=== PATIENT | male | born 1980 | race Caucasian/White ===

== ENCOUNTER 2025-01-25 03:51 | Day surgery (SDC) | payer BC, SELFPAY ==
[2025-01-25] VITALS (18 sets, daily range): BP systolic 109–153; BP diastolic 75–106; PULSE 50–84; RESP 10–16; TEMP 36.3–36.8; O2SAT 93–98; BMI 29.0
--- NOTE | 2025-01-25 04:11 | ED.ABDPAIN ---
HPI - Abdominal Pain General Date Seen: 01/25/25 Chief Complaint: Abdominal Pain Stated Complaint: Right side abdominal pain Time Seen by Provider: 01/25/25 04:03 Source: patient and RN notes reviewed Mode of arrival: ambulatory Limitations: no limitations History of Present Illness HPI narrative: Patient is a 44-year-old gentleman who presents here with right upper quadrant pain for the last 6 hours, he describes as crampy intermittent/colicky in nature no radiation to his back or anywhere else. Some nausea but has not vomited. Patient notes that he has had this before approximately at 6 months ago and also 2 years ago. Two years ago he was seen in the [place] ER, but had no definite diagnosis. Does not recall if any imaging was done. No previous history of any abdominal surgeries has had previous knee surgery, along with dental surgery. Did not take anything for the pain tonight, lives in [place] but works at [employer] here in town. Does use occasional alcohol, his 6-8 oz per week basis. , lifetime smoker, 1 pack per day. No use of drugs Pertinent past history: none Onset (ago): hour(s) (6) Pain Consistency: colicky Location: RUQ Severity: moderate Quality: cramping and stabbing Radiation: none Migration to: no migration Exacerbating factors: nothing Relieving factors: nothing Context: history of similar episodes Associated symptoms: nausea Related Data Home Medications ?Medication ?Instructions ?Recorded ?Confirmed No Known Home Medications 01/25/25 01/25/25 Allergies Allergy/AdvReac Type Severity Reaction Status Date / Time erythromycin base Allergy Severe Anaphylaxis Verified 01/25/25 03:58 Review of Systems Status of ROS Reports: 10 or more systems reviewed and unremarkable except as noted in History and below [facility] Surgical History History of wisdom tooth extraction ?K08.409 - Partial loss of teeth, unspecified cause, unspecified class (ICD-10) History of tonsillectomy ?Z90.89 - Acquired absence of other organs (ICD-10) Social History Smoking Status: Current every day smoker Second hand tobacco smoke exposure: Yes How often do you have a drink containing alcohol: never AUDIT-C Alcohol total score: 0 Non-prescribed substance use: denies use Exam Narrative: Exam Narrative: On examination I find him in room 5, he is in some distress, I would describe as moderate pupils are equal round reactive to light there is no scleral icterus redness TMs are normal oropharynx normal there is no adenopathy anterior posterior chains, chest is good air entry bilaterally no wheezing crackles noted heart sounds no clicks murmurs or gallops his abdomen shows tenderness in the right upper quadrant, with a positive Wagner sign. Bowel sounds are quiet, but occasional. No organomegaly, no CVA tenderness, skin reveals no petechiae rashes, no scleral icterus. Moves all extremities independently well, neurologically intact. No rashes Const: Vital Signs, click to edit/add: Vital Signs - 24 hr 01/25/25 03:56 01/25/25 04:23 01/25/25 05:15 Temperature 98.2 F 98.2 F Pulse Rate Pulse Rate [Pulse Oximeter] 84 Respiratory Rate 16 Blood Pressure [Ri ght Upper Arm] 144/103 H Pulse Oximetry 98 98 Oxygen Delivery Me thod Room Air 01/25/25 05:24 01/25/25 06:07 01/25/25 08:00 Temperature 98.2 F 98.2 F Pulse Rate 70 Pulse Rate [Pulse Oximeter] 65 Respiratory Rate 16 Blood Pressure [Ri ght Upper Arm] 117/75 Pulse Oximetry 98 93 Oxygen Delivery Me thod Room Air Documenting provider has reviewed patient's vital signs: yes Course Course ED Course: I did a point of care ultrasound of his right upper quadrant, I do see evidence of some shadowing, likely stones, some sludge also, 1 of the stones appears to be in the neck, no wall thickening, no pericholecystic fluid, and a mildly positive Wagner sign. We will proceed with the CT scan Reevaluation(s) Time of Reevaluation #1: 08:04 Reevaluation #1: Discussed with Dr. Ceballos from General surgery she recommends a lap choly today, given the history, and findings on ultrasound, I spoke to the patient he is agreeable. She will come by and see the patient we will keep him NPO. Vital Signs Vital signs: Initial Vital Signs Temperature 98.2 F 01/25/25 03:56 Temperature Source Temporal Artery Scan 01/25/25 03:56 Pulse Rate 84 02/25/25 03:56 Respiratory Rate 16 01/25/25 03:56 Blood Pressure 144/103 H 01/25/25 03:56 Blood Pressure Mean 116 H 01/25/25 03:56 Blood Pressure Position Sitting 01/25/25 03:56 Pulse Oximetry 98 01/25/25 03:56 Oxygen Delivery Method Room Air 01/25/25 03:56 Vital Signs Temperature 98.2 F 01/25/25 03:56 Pulse Rate 84 01/25/25 03:56 Respiratory Rate 16 01/25/25 03:56 Blood Pressure 144/103 H 01/25/25 03:56 Pulse Oximetry 98 01/25/25 03:56 Oxygen Delivery Method Room Air 01/25/25 03:56 Temperature 98.2 F 01/25/25 06:07 Pulse Rate 70 01/25/25 08:00 Respiratory Rate 16 01/25/25 06:07 Blood Pressure 117/75 01/25/25 06:07 Pulse Oximetry 93 01/25/25 08:00 Oxygen Delivery Method Room Air 01/25/25 06:07 Medications Administered Medications: Discontinued Medications Generic Name Dose Route Start Last Admin Trade Name Freq PRN Reason Stop Dose Admin Sodium Chloride 1,000 mls @ 1,000 mls/hr 01/25/25 04:15 01/25/25 05:32 0.9 % Sodium Chloride 1000 Ml IV 01/25/25 05:14 Infused .Q1H CADEN Infusion Ketorolac Tromethamine 30 mg 01/25/25 04:15 01/25/25 04:23 Ketorolac 30 Mg/Ml Inj IVP 01/25/25 04:16 30 mg ONCE ONE Administration Ondansetron HCl 4 mg 01/25/25 04:15 01/25/25 04:23 Ondansetron 2 Mg/Ml Inj IVP 01/25/25 04:16 4 mg ONCE ONE Administration MDM - Abdominal Pain MDM Narrative Medical decision making narrative: During this evaluation of this patient I considered multiple differential diagnosis is which included the life-threatening such as appendicitis, aortic aneurysm, mesenteric ischemia, bowel perforation, volvulus, and bowel obstruction. Other differential diagnosis is include but are not limited to cholecystitis, pancreatitis, hepatitis, gastritis, GERD, diverticulitis, peptic ulcer disease, pyelonephritis/UTI, renal colic/stone, testicular torsion as well as other acute scrotal processes, inflammatory bowel disease, as well as other etiologies Medical Records Attestation: I reviewed the patient's medical records. Lab Data Attestation: I reviewed the patient's lab results. Labs: Lab Results 01/25/25 01/25/25 01/25/25 Range/Units 04:04 04:10 04:57 WBC 14.58 H (4.50-11.00) K/uL RBC 5.36 (4.30-5.90) m/uL Hgb 15.7 (13.5-17.5) gm/dL Hct 47.0 (37.0-53.0) % MCV 88 (80-100) fL MCH 29 (26-34) pg MCHC 33 (32-36) gm/dL RDW Coeff of Osmin 13.6 (11.5-15.5) % Plt Count 242 (140-440) K/uL Neut % (Auto) 60.7 (42.0-72.0) % Lymph % (Auto) 28.1 (20-44) % [place] % (Auto) 7.1 (0.0-11.0) % Eos % (Auto) 3.3 (0.0-7.0) % Baso % (Auto) 0.5 (0.0-3.0) % Neut # (Auto) 8.90 H (1.7-7.0) K/uL Lymph # (Auto) 4.10 H (0.90-2.90) K/uL [place] # (Auto) 1.00 H (0.00-0.90) K/UL Eos # (Auto) 0.50 (0.00-0.50) K/uL Baso # (Auto) 0.10 (0.00-0.30) K/uL Abs Immat Gran (auto) 0.00 (0.00-0.30) K/uL Imm/Tot Granulo (auto) 0.3 % Sodium 138 (135-149) mmol/L Potassium 3.7 (3.6-5.1) mmol/L Chloride 107 (96-114) mmol/L Carbon Dioxide 21 (20-32) mmol/L Anion Gap 10 (7-15) mEq/L BUN 17 (5-24) mg/dL Creatinine 1.0 (0.5-1.5) mg/dL Estimated Creat Clear 88.13 Estimated GFR 95 ml/min Glucose 126 H (60-115) mg/dL Calcium 9.2 (8.4-10.6) mg/dL Troponin I < 0.01 L (0.01-0.04) ng/mL C-Reactive Protein < 0.5 L (0.5-1.0) mg/dL Amylase 52 (18-89) U/L Lipase 86 (23-300) U/L Procalcitonin 0.04 (<0.50) ng/mL Urine Color Yellow (Yellow) Urine Appearance Clear (Clear) Urine pH 6.0 (5.0-8.5) Ur Specific Conrad 1.025 (1.000-1.030) Urine Protein Negative (Negative) Urine Glucose (UA) Negative (Negative) Urine Ketones Negative (Negative) Urine Blood Negative (Negative) Urine Nitrite Negative (Negative) Urine Bilirubin Negative (Negative) Urine Urobilinogen 0.2 (0.2-1.0) Ur Leukocyte Esterase Negative (Negative) Urine RBC 0-2 (0-2) Urine WBC 0-2 (0-5) Ur Squamous Epith Cells Few (None-Few) Urine Bacteria None (None) Ethyl Alcohol < 0.01 L (0.01-0.03) % Lab Acknowledgement Test Added Imaging Data CT scan - abdomen: Attestation: I have reviewed the pertinent imaging results. My impression: Cholelithiasis without cholecystitis Radiologist's impression: Patient: Everton Fuentes MR#: [id number] : 1980 Acct:[id number] Loc: ED Service Date: 01/25/[address]: Ordering Physician: Yung Hickman M.D. Date of Service: 01/25/25 Procedure(s): CT abdomen pelvis w con Accession Number(s): [id number] cc: Provider,Not a Local; Yung Hickman M.D.~ For Patients: As a result of the Century Cures Act, medical imaging exams and procedure reports are released immediately into your electronic medical record. You may view this report before your referring provider. If you have questions, please contact your health care provider. INDICATION: Right upper quadrant pain, intermittent. COMPARISON: None TECHNIQUE: CT examination of the abdomen and pelvis was performed following the uneventful intravenous administration of 91 cc of Isovue 370. Thin section axial images were obtained from the lung bases through the pubic symphysis. Oral contrast was not administered. Please note that all CT scans at this facility use dose modulation, iterative reconstruction, and/or weight-based dosing when appropriate to reduce radiation dose to as low as reasonably achievable. FINDINGS: LUNG BASES: The heart size is normal at the lung bases.There is a 7 millimeter nodule at the left lung base best seen on axial image 13. Recommend a full formal noncontrast chest CT in the nonacute setting as multiplicity of findings may be helpful in determining the etiology and developing management recommendations. LIVER/BILIARY SYSTEM:The liver is normal in size and configuration. There is no focal mass and there is no intra- or extra hepatic biliary ductal dilatation.Hepatic steatosis. The gallbladder is distended. There are gallstones near the gallbladder neck but not identified within the duct. No clearly visible wall thickening or pericholecystic fluid. Consider sonography for further evaluation ADRENALS: Normal KIDNEYS, URETERS and BLADDER:The kidneys appear normal. No visible mass, calculus or hydronephrosis. The ureters and bladder as visualized appear normal. SPLEEN:Normal appearance. PANCREAS: Appears normal. RETROPERITONEUM and MESENTERY: There is no mass, adenopathy or aortic aneurysm. GASTROINTESTINAL SYSTEM: There is no evidence of diverticulitis, colitis, mechanical obstruction, or appendicitis. The small bowel as visualized appears normal.Mild fecal retention PELVIS: No mass, adenopathy or free fluid. OSSEOUS STRUCTURES and ABDOMINAL WALL: There is an age-appropriate appearance of the osseous structures.No significant abdominal wall defect. OTHER: No free fluid or free air. IMPRESSION: 1. Distended gallbladder. Cholelithiasis with stones identified near the gallbladder neck. No definite wall thickening, pericholecystic fluid or biliary ductal dilation. Consider sonography for more definitive evaluation. 2. There is a left lower lobe nodule. Additional follow-up is recommended as outlined in the body of the report. 3. Other incidental nonacute appearing findings as above Please note that all CT scans at this facility use dose modulation, iterative reconstruction, and/or weight-based dosing when appropriate to reduce radiation dose to as low as reasonably achievable. Dictated by Zelalem Choudhury MD @ 01/25/2025 5:51:29 AM ([place] [id number] Diagnostic Imaging Report Patient: Everton Fuentes MR#: [id number] : 1980 Acct:[id number] Loc: ED Service Date: 01/25/[address]: Ordering Physician: Yung Hickman M.D. Date of Service: 01/25/25 Procedure(s): US gallbladder Accession Number(s): [id number] cc: Provider,Not a Local; Yung Hickman M.D.~ For Patients: As a result of the Cures Act, medical imaging exams and procedure reports are released immediately into your electronic medical record. You may view this report before your referring provider. If you have questions, please contact your health care provider. Indication: Right upper quadrant pain. Abnormal CT Technique: Sonography of the abdomen was performed limited to the structures discussed below Comparison: The CT of earlier the same day. Findings: As described below Impression: 1. Gallbladder wall is mildly thickened at 4 millimeters. Stones are identified in the gallbladder neck. There also probable small polyps and there is gallbladder sludge. 2. No pericholecystic fluid collection. 3. Reported sonographic Wagner`s sign. 4. Normal caliber common bile duct. 5. Nonspecific findings but could indicate very early/developing acute cholecystitis in the appropriate clinical setting. Appropriate consultation is advised Dictated by Zelalem Choudhury MD @ 01/25/2025 7:19:37 AM (Electronically Signed) Discharge Plan Discharge Clinical Impression: Abdominal pain, Cholelithiasis, Incidental pulmonary nodule, > 3mm and < 8mm Patient Disposition: XFER to OR Condition: Improved Follow Up/Referrals: Provider,Not a Local [Primary Care Provider] -
[2025-01-25] MEDS: 0.9 % SODIUM CHLORIDE 1000 ml 1,000 ML IV (04:12)
[2025-01-25] MEDS: ONDANSETRON 2 MG/ML inj 4 MG IVP (04:23)
[2025-01-25] MEDS: KETOROLAC 30 MG/ML inj IVP (04:23)
[2025-01-25 04:25] LABS: Basophils Percent Auto 0.5 % (0.0-3.0); Eosinophils Percent Auto 3.3 % (0.0-7.0); Hemoglobin* 15.7 gm/dL (13.5-17.5); Immature Granulocytes Pct Auto 0.3 %; Lymphocytes Percent Auto 28.1 % (20-44); Mean Corpuscular HGB Conc 33 gm/dL (32-36); Mean Corpuscular Hemoglobin 29 pg (26-34); Mean Corpuscular Volume 88 fL (80-100); Monocytes Percent Auto 7.1 % (0.0-11.0); Neutrophils Percent Auto 60.7 % (42.0-72.0); Platelet Count* 242 K/uL (140-440); RDW Coefficient of Variation % 13.6 % (11.5-15.5); Red Blood Count 5.36 m/uL (4.30-5.90); White Blood Count* 14.58 K/uL (4.50-11.00)
[2025-01-25 04:26] LABS: Appearance Urine Clear (Clear); Bilirubin Urine Negative (Negative); Blood Urine Negative (Negative); Color Urine Yellow (Yellow); Glucose Urine Negative (Negative); Ketones Urine Negative (Negative); Leukocyte Esterase Urine Negative (Negative); Nitrite Urine Negative (Negative); Protein Urine Negative (Negative); Specific Gravity Urine 1.025 (1.000-1.030); Urobilinogen Urine 0.2 (0.2-1.0)
[2025-01-25 04:28] LABS: Slide Review Reflex No
--- OUTSIDE RECORDS SUMMARY | 2025-01-25 04:32 | XMS_ITS | Encounter Summary ---
Author Organization [facility] Address [address] [place] [address] Care Team Providers Care Peer Counselor Name Role Phone Elsewhere, Pcp Primary Care Provider Unavailabl e Encounter Details Date Type Department Care Team (Late st Contact Info) Description 12/20/2024 4:40 PM [employer] Telemedicine [facility] in [place], [place] [address] [facility] [id number] Cortez, Sommer Mas APRN, C.N.P., F.N.P. [address] [place] [id number] Sinusitis Acute (Primary Dx) Social History Tobacco Use Types Packs/Day Years Used Date Smoking Tobacco: Every Day Cigarettes 1 26.5 Started: 05/01/1996; Last attempted to quit: 11/08/2022 Passive Smoke Exposure: Past Smokeless Tobacco: Never Comments:Tobacco cessation i nformation offered - patient declines stating has info at home. Stop smoking cigarette however does vaping Alcohol Use Standard Drinks/Week Comments Yes 4 (1 standard drink = 0.6 oz pur e alcohol) weekly [facility] Utilities Answer Date Recorded In the past 12 months has th e electric, gas, oil, or water company threatened to shut off services in your home? No 12/19/2024 Humiliation, Afraid, Rape, and Kick questionnair e Answer Date Recorded Within the last year, have y ou been afraid of your partner or ex-partner? No 07/07/2023 Within the last year, have y ou been humiliated or emotionally abused in other ways by your partner or ex-partner? No Within the last year, have y ou been kicked, hit, slapped, or otherwise physically hurt by your partner or ex-partner? No 07/07/2023 Within the last year, have y ou been raped or forced to have any kind of sexual activity by your partner or ex-partner? No 07/07/2023 Social Connection and Isolation Panel [NHANES] A nswer Date Recorded In a typical week, how many times do you talk on the phone with family, friends, or neighbors? Patient declined 04/18/2022 How often do you get togethe r with friends or relatives? Patient declined 04/18/2022 How often do you attend voodoo or denominational serv ices? Patient declined 04/18/2022 Do you belong to any clubs o r organizations such as voodoo groups, unions, fraternal or athletic groups, or school groups? Patient declined 04/18/2022 How often do you attend meet ings of the clubs or organizations you belong to? Patient declined 04/18/2022 Are you , , di vorced, , never , or living with a partner? 04/18/2022 AUDIT-C Answer Date Recorded Q1: How often do you have a drink containing alc ohol? Patient declined 04/18/2022 Average Number of Drinks Not on file 022 Frequency of Binge Drinking Not on file 03/31 Overall Financial Resource Strain (CARDIA) Answe r Date Recorded How hard is it for you to pa y for the very basics like food, housing, medical care, and heating? Not hard at all 07/07/2023 PHQ-2 Answer Date Recorded PHQ-2 Score 0 04/29/2024 [facility] Occupat ional Health - Occupational Stress Questionnaire Answer Date Recorded Do you feel stress - tense, restless, nervous, or anxious, or unable to sleep at night because your mind is troubled all the time - these days? Only a little 04/18/2022 Exercise Vital Sign Answer Date Recorde d On average, how many days pe r week do you engage in moderate to strenuous exercise (like a brisk walk)? 7 days 12/19/2024 On average, how many minutes do you engage in exercise at this level? 150+ min 12/19/2024 Hunger Vital Sign Answer Date Recorded Within the past 12 months, y ou worried that your food would run out before you got the money to buy more. Never true 12/19/19 25 Within the past 12 months, t he food you bought just didn't last and you didn't have money to get more. Never true 12/19/2024 PRAPARE - Transportation Answer Date Re corded In the past 12 months, has l ack of transportation kept you from medical appointments or from getting medications? No 12/01 In the past 12 months, has l ack of transportation kept you from meetings, work, or from getting things needed for daily living? No 12/19/2024 Nutrition Answer Date Recorded On average, how many serving s of fruits and vegetables do you eat per day (serving size is equal to 1 cup or approximately the size of a tennis ball)? 0-2 12/19/2024 Dental Answer Date Recorded Dental: Regular Dentist Yes 12/19/19 Employment Answer Date Recorded Employment status Employed and actively working without restrictions 12/19/2024 Housing Stability Answer Date Recorded What is your living situation today? I have a [facility] place to live 12/19/2024 Sex and Gender Information Value Date Recorded Sex Assigned at Male 08/21/2021 6:10 PM CDT Legal Sex Male 9:28 PM [employer] Gender Identity Male 03/07/2021 7:13 PM CDT Sexual Orientation Straight 03/07/2021 7: 13 PM CDT documented as of this encounter Progress Notes * Cortez, Sommer Mas, DENIS, C.N.P., F.N.P. - 12/20/2024 4:40 PM CST SUBJECTIVE CHIEF COMPLAINT / REASON FOR VISIT Sommer MARTINEZC and Everton conducted via real-time audio/video technology from [facility] their home. Everton is a 44 y.o. male who presents for evaluation of No chief complaint on file.. HISTORY OF PRESENT ILLNESS Video visit with a 44-year-old male who is having sinus pain and pressure. Original URI symptoms began 2 weeks ago. Said he has had a cough and congestion but that has improved, now it is just aroundhis sinuses. Said the drainage is yellow and cloudy. Has been trying DayQuil and NyQuil, Mucinex, Vicks in the shower. HISTORY The patients allergies, current medications, problem list, and social history were reviewed . REVIEW OF SYSTEMS Constitutional: - Negative for fever. ENT: Positive for sinus congestion. Respiratory: Positive for dry cough. - Negative for shortness of breath. Cardiovascular: - Negative for chest pain, pressure or tightness. OBJECTIVE There were no vitals taken for this visit. PHYSICAL EXAM Constitutional General: He is not in acute distress. Appearance: Normal appearance. He is not ill-appearing. Comments: Patient appears well, speaks in full sentences. No respiratory distress. Points to his maxillary sinuses that are tender. Neurological Mental Status: He is alert. No results found for this or any previous visit (from the past 24 hours). ASSESSMENT / PLAN PLAN: Will treat with Augmentin. Any prescription orders needed have been placed. Pertinent [id number] modalities have been discussed. Length/course of illness expectations has been given. Instructions on follow-up have been reviewed. Change in symptoms or signs that would indicate need for re-evaluation have been discussed also. #1 Sinusitis Acute - amoxicillin-pot clavulanate (Augmentin) 875-125 mg per tablet; Take 1 tablet by mouth 2 (two) times a day for 5 days., Starting 12/20/2024, Until 12/25/2024, Normal ER [employer]ER documented in this encounter Plan of Treatment Not on file documented as of this encounter Visit Diagnoses Diagnosis Sinusitis Acute- Primary documented in this encounter Care Teams Peer Counselor Relationship Specialty Start Date End Date Elsewhere, Pcp PCP - General Family Medicine 12/09/17 documented as of this encounter
--- OUTSIDE RECORDS SUMMARY | 2025-01-25 04:32 | XMS_ITS | Clinical Summary ---
Author Organization [facility] Address [address] [place] [address] Care Team Providers Care Home Assessment Nurse Name Role Phone Elsewhere, Pcp Primary Care Provider Unavailabl e Source Comments Patient records contain information from all sites at [facility]. For routine questions regarding patient records, call [phone] during business hours, M-F 8:00 AM - 5:00 PM Central Time. Record requests for emergency care only can be directed to [phone] at any time.[facility] Allergies Active Allergy Reactions Criticality Noted Date Comments Erythromycin Anaphylaxis High 08/14/2011 Medications * This document contains information received from the source organization and may not represent a complete record from that organization. loratadine (CLARITIN) 10 mg tablet Take 10 mg by mouth daily as needed for allergies. Active ibuprofen (ADVIL,MOTRIN) 200 mg tablet Take 400 mg by mouth every 6 (six) hours as needed for pain. Active terbinafine (LamISIL) 250 mg tablet Take 1 tablet (250 mg total) by mouth daily. 84 tablet 04/30/2024 Active Active Problems Problem Noted Date Diagnosed Date Body Mass Index 30.0 To 30.9 Adult 07/15/2023 Nicotine Dependence Cigarettes 06/16/2019 Resolved Problems Problem Noted Date Diagnosed Date Resolved Date History Of Falling 01/01/2021 No Current Problems or Disability 10/20/2014 06/16/2019 Encounters Date Type Department Care Team Description 12/20/2024 4:40 PM ULTRASOUND COORDINATOR Telemedicine [facility] in [place] [address] [place] [address] Coral, Sommer Mas APRN, C.N.P., F.N.P. Sinusitis Acute (Primary Dx) from Last 3 Months Immunizations Immunization Administration Dates Next Due Influenza, Unspecified 10/02/2010 Tdap 12/30/2013 Family History Medical History Relation Name Comments Breast cancer Mother yaw gomez Migraines Mother yaw gomez Leukemia Sister jyoti cole Relation Name Status Comments Mother yaw gomez Sister jyoti cole Social History Tobacco Use Types Packs/Day Years Used Date Smoking Tobacco: Every Day Cigarettes 1 26.5 Started: 05/01/1996; Last attempted to quit: 11/08/2022 Passive Smoke Exposure: Past Smokeless Tobacco: Never Tobacco Cessation:Ready to Q uit: Not Asked; Counseling Given: Not Answered Comments:Tobacco cessation information offered - patient declines stating has info at home. Stop smoking cigarette however does vaping Alcohol Use Standard Drinks/Week Comments Yes 4 (1 standard drink = 0.6 oz pur e alcohol) weekly [employer] Utilities Answer Date Recorded In the past 12 months has [employer] gas, oil, or water [employer] threatened to shut off services in your [...] declined 04/18/2022 How often do you attend yazdanism or congregation serv ices? Patient declined 04/18/2022 Do you belong to any clubs o r organizations such as yazdanism groups, unions, fraternal or athletic groups, or [...] Answer Date Recorded PHQ-2 Score 0 04/29/2024 [facility] - Occupational Stress [...] your living situation today? I have a [facility] place to live 12/19/2024 Sex and Gender Information Value Date Recorded Sex Assigned at Male 08/21/2021 6:10 PM CDT Legal Sex Male 9:28 PM ULTRASOUND COORDINATOR Gender Identity Male 03/07/2021 7:13 PM CDT Sexual Orientation Straight 03/07/2021 7: 13 PM CDT Last Filed Vital Signs Vital Sign Reading Time Taken Comments Blood Pressure 121/81 04/30/2024 3:03 PM CDT Pulse 73 04/30/2024 3:03 PM CDT Temperature 36.3 C (97.4 F) 07/14/2023 1:45 PM CDT Respiratory Rate 16 04/30/2024 3:03 PM CDT Oxygen Saturation 97% 05/15/2022 3:45 PM CDT room air Inhaled Oxygen Concentration - - Weight 81.2 kg (179 lb 0.2 oz) 04/30/2024 3:03 P M CDT Height 166.7 cm (5' 5.63) 07/14/2023 1:45 PM CD T Body Mass Index 29.22 07/14/2023 1:45 PM CDT Plan of Treatment Health Maintenance Due Date Last Done Comments Hepatitis B Screening 1980 Hepatitis C Screening 1980 Lipid (Cholesterol) Screening 1980 Hepatitis B Vaccines (1 of 3 - 19+ 3-dose series) 1999 Pneumococcal vaccine (0-49 years) (1 of 2 - PCV) 1999 DTaP,Tdap,and Td Vaccines (2 - Td or Tdap) 12/30/2023 12/30/2013 COVID-19 Vaccine (3 - 2023-2 5 season) 2024 04/18/2021, 03/28/2021 Influenza Vaccine (#1) 2024 10/02/2010 Depression Screening (Annual PHQ-2) 12/01/2024 Tobacco Cessation counseling 04/30/2025, 07/14/2023 HPV Vaccines Aged Out No longer eligi ble based on patient's age to complete this topic IPV Vaccines Aged Out No longer eligi ble based on patient's age to complete this topic Insurance [facility] Care Teams Home Assessment Nurse Relationship Specialty Start Date End Date Elsewhere, Pcp PCP - General Family Medicine 12/09/17
--- OUTSIDE RECORDS SUMMARY | 2025-01-25 04:32 | XMS_ITS | Clinical Summary ---
Author Organization [facility] Address [address] [place] [id number] Care Team Providers Care Wwe Wrestler Name Role Phone Pcp, No Primary Care Provider Unavailabl e Allergies Active Allergy Reactions Criticality Noted Date Comments Erythromycin Anaphylaxis High 08/14/2011 Medications traMADoL (Ultram) 50 mg tabletIndication s:Ganglion cyst Take 1 Tablet (50 mg) by mouth every 6 hours if needed for Pain. 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 Gender Identity Not on file Sexual Orientation Not on file Obstetrics History Last Filed Vital Signs Vital Sign Reading Time Taken Comments Blood Pressure 111/76 07/17/2023 12:25 PM CDT Pulse 48 07/17/2023 12:25 PM CDT Temperature 36.3 C (97.3 F) 07/17/2023 11:52 AM CDT Respiratory Rate 16 07/17/2023 12:25 PM CDT Oxygen Saturation 97% 07/17/2023 12:25 PM CDT Inhaled Oxygen Concentration - - Weight 83.1 kg (183 lb 4.8 oz) 07/17/2023 9:06 A M CDT Height 170.5 cm (5' 7.13) 07/11/2023 8:06 AM CD T Body Mass Index 28.6 07/11/2023 8:06 AM CDT Plan of Treatment Health Maintenance Due Date Last Done Comments Tdap 1991 Depression screening for age 12+ 1992 HIV for age 15-65 1995 BMI (ht and wt on same day) for age 18+ 1998 Hepatitis C screening for age 18-79 1998 Pneumococcal series for age 6-49 (1 of 2 - PCV) 1999 Tetanus booster 2000 Lipids for age 35-44 2015 COVID-19 vaccine series ( season) 2024 04/18/2021, 03/28/2021 Influenza for age 9-49 08/01/2024 Insurance [facility] BLUE CROSS OF NON-[place] Advance Directives * Full Code (Latest Code Status on File) Date Activated Date Inactivated Comments 07/17/2023 7:30 AM 07/17/2023 2:56 PM Question Answer Comments Code Status Discussion: Reviewed Preferences * Full Code Date Activated Date Inactivated Comments 05/30/2022 5:55 AM 05/30/2022 9:20 AM Question Answer Comments Code Status Discussion: Reviewed Preferences Care Teams Wwe Wrestler Relationship Specialty Start Date End Date Pcp, No . PCP - General 08/03/19
[2025-01-25 04:38] LABS: RBC Urine 0-2 (0-2); Squamous Epithelial Cell Urine Few (None-Few); WBC Urine 0-2 (0-5)
[2025-01-25 04:39] LABS: Chloride* 107 mmol/L (96-114); Sodium* 138 mmol/L (135-149)
[2025-01-25 04:40] LABS: Potassium* 3.7 mmol/L (3.6-5.1)
[2025-01-25 04:42] LABS: Amylase* 52 U/L (18-89); Blood Urea Nitrogen* 17 mg/dL (5-24); Est. Creatinine Clearance* 88.13; Estimated Glomerular Filt Rate 95 ml/min
[2025-01-25 04:43] LABS: Anion Gap 10 mEq/L (7-15); Calcium* 9.2 mg/dL (8.4-10.6); Carbon Dioxide* 21 mmol/L (20-32); Glucose* 126 mg/dL (60-115); Lipase* 86 U/L (23-300)
[2025-01-25 04:49] LABS: C Reactive Protein* < 0.5 mg/dL (0.5-1.0); Ethanol* < 0.01 % (0.01-0.03)
[2025-01-25 05:00] LABS: Procalcitonin* 0.04 ng/mL (<0.50)
--- NOTE | 2025-01-25 05:09 | CRLHL7_ITS ---
For Patients: As a result of the 21st Century Cures Act, medical imaging exams and procedure reports are released immediately into your electronic medical record. You may view this report before your referring provider. If you have questions, please contact your health care provider. INDICATION: Right upper quadrant pain, intermittent. COMPARISON: None TECHNIQUE: CT examination of the abdomen and pelvis was performed following the uneventful intravenous administration of 91 cc of Isovue 370. Thin section axial images were obtained from the lung bases through the pubic symphysis. Oral contrast was not administered. Please note that all CT scans at this facility use dose modulation, iterative reconstruction, and/or weight-based dosing when appropriate to reduce radiation dose to as low as reasonably achievable. FINDINGS: LUNG BASES: The heart size is normal at the lung bases.There is a 7 millimeter nodule at the left lung base best seen on axial image 13. Recommend a full formal noncontrast chest CT in the nonacute setting as multiplicity of findings may be helpful in determining the etiology and developing management recommendations. LIVER/BILIARY SYSTEM:The liver is normal in size and configuration. There is no focal mass and there is no intra- or extra hepatic biliary ductal dilatation.Hepatic steatosis. The gallbladder is distended. There are gallstones near the gallbladder neck but not identified within the duct. No clearly visible wall thickening or pericholecystic fluid. Consider sonography for further evaluation ADRENALS: Normal KIDNEYS, URETERS and BLADDER:The kidneys appear normal. No visible mass, calculus or hydronephrosis. The ureters and bladder as visualized appear normal. SPLEEN:Normal appearance. PANCREAS: Appears normal. RETROPERITONEUM and MESENTERY: There is no mass, adenopathy or aortic aneurysm. GASTROINTESTINAL SYSTEM: There is no evidence of diverticulitis, colitis, mechanical obstruction, or appendicitis. The small bowel as visualized appears normal.Mild fecal retention PELVIS: No mass, adenopathy or free fluid. OSSEOUS STRUCTURES and ABDOMINAL WALL: There is an age-appropriate appearance of the osseous structures.No significant abdominal wall defect. OTHER: No free fluid or free air. IMPRESSION: 1. Distended gallbladder. Cholelithiasis with stones identified near the gallbladder neck. No definite wall thickening, pericholecystic fluid or biliary ductal dilation. Consider sonography for more definitive evaluation. 2. There is a left lower lobe nodule. Additional follow-up is recommended as outlined in the body of the report. 3. Other incidental nonacute appearing findings as above Please note that all CT scans at this facility use dose modulation, iterative reconstruction, and/or weight-based dosing when appropriate to reduce radiation dose to as low as reasonably achievable. Dictated by Zelalem Choudhury MD @ 01/25/2025 5:51:29 AM (Electronically Signed)
[2025-01-25 05:57] LABS: Troponin I* < 0.01 ng/mL (0.01-0.04)
[2025-01-25] MEDS: 0.9 % SODIUM CHLORIDE 1000 ml 1,000 ML 150 ML IV ×2 (08:13→13:48)
--- NOTE | 2025-01-25 09:23 | PM.GSCN ---
History of Present Illness Consult details Date Seen: 01/25/25 Consult date: 01/25/25 Narrative: 44-year-old male presented to emergency room with epigastric and right upper quadrant pain that started last night. Patient described the pain as sharp and started after dinner. He ate spaghetti for dinner. Patient had similar episodes of pain in the past and was seen at the outside hospital in the emergency room at least 2 times. No definitive cause of his pain was found. Patient denies any nausea or vomiting. His bowel movements are usually daily. Patient does take ibuprofen on average every 3 days. He is a smoker. He denies acid reflux symptoms. He does drink alcohol anywhere from 1 drink a day to up to 4-5 on Tuesdays. I personally reviewed his workup in the emergency room. Patient was found to have elevated WBC of 14. His lipase was normal. His liver function tests were normal. A gallbladder ultrasound was obtained that showed distended gallbladder with cholelithiasis, the gallbladder wall was 4 mm thick with no pericholecystic fluid. Common bile duct was measured at [address] was also obtained that showed distended gallbladder with no significant pericholecystic fluid. There was no dilated small or large intestine. There is a small lung nodule noted and further follow-up with primary care doctor was recommended. Review of Systems Narrative: General: no fevers HENT: no problems swallowing CV: no shortness of breath Resp: no cough GI: No nausea, vomiting, abdominal pain : no dysuria, no increased urinary frequency, no hematuria Skin: no new rashes Musculoskeletal: no back pain Neuro: no muscle weakness Psyche: no depression, no anxiety PFSH PFSH Surgical History H/O knee surgery ?Z98.890 - Other specified postprocedural states (ICD-10) History of wisdom tooth extraction ?K08.409 - Partial loss of teeth, unspecified cause, unspecified class (ICD-10) History of tonsillectomy ?Z90.89 - Acquired absence of other organs (ICD-10) Social History (Updated 01/25/25 @ 10:52 by Warren Bee MD) Narrative: 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 Smoking Status: Current every day smoker Second hand tobacco smoke exposure: Yes How often do you have a drink containing alcohol: never AUDIT-C Alcohol total score: 0 Non-prescribed substance use: denies use Meds Home Medications and Allergies Home Medications ?Medication ?Instructions ?Recorded ?Confirmed ?Type No Known Home Medications 01/25/25 01/25/25 History Allergies Allergy/AdvReac Type Severity Reaction Status Date / Time erythromycin base Allergy Severe Anaphylaxis Verified 01/25/25 03:58 Exam Narrative: Exam Narrative: General appearance: Alert, cooperative, and in no distress Pulmonary: Chest symmetric, lungs clear bilaterally Cardiovascular Heart: Regular rate and rhythm, S1, S2, no murmurs/rubs/gallops Gastrointestinal Abdominal: soft, not distended, mildly tender to palpation in the right upper quadrant, negative Wagner sign. Skin: Normal skin color, texture, and turgor. No rashes or lesions. Psychiatric: Alert, cooperative, normal affect. Const: Vital Signs, click to edit/add: Vital Signs - 24 hr 01/25/25 03:56 01/25/25 04:23 01/25/25 05:15 Temperature 98.2 F 98.2 F Pulse Rate Pulse Rate [Pulse Oximeter] 84 Respiratory Rate 16 Blood Pressure Blood Pressure [Ri ght Upper Arm] 144/103 H Pulse Oximetry 98 98 Oxygen Delivery Me thod Room Air 01/25/25 05:24 01/25/25 06:07 01/25/25 08:00 Temperature 98.2 F 98.2 F Pulse Rate 70 Pulse Rate [Pulse Oximeter] 65 Respiratory Rate 16 Blood Pressure Blood Pressure [Ri ght Upper Arm] 117/75 Pulse Oximetry 98 93 Oxygen Delivery Me thod Room Air 01/25/25 08:01 Temperature Pulse Rate 68 Pulse Rate [Pulse Oximeter] Respiratory Rate 16 Blood Pressure 139/95 H Blood Pressure [Ri ght Upper Arm] Pulse Oximetry 97 Oxygen Delivery Me thod Results Labs Labs: Abnormal lab results 01/25/25 Range/Units 04:10 WBC 14.58 H (4.50-11.00) K/uL Neut # (Auto) 8.90 H (1.7-7.0) K/uL Lymph # (Auto) 4.10 H (0.90-2.90) K/uL [place] # (Auto) 1.00 H (0.00-0.90) K/UL Glucose 126 H (60-115) mg/dL Troponin I < 0.01 L (0.01-0.04) ng/mL C-Reactive Protein < 0.5 L (0.5-1.0) mg/dL Ethyl Alcohol < 0.01 L (0.01-0.03) % Diabetes panel 01/25/25 Range/Units 04:10 Sodium 138 (135-149) mmol/L Potassium 3.7 (3.6-5.1) mmol/L Chloride 107 (96-114) mmol/L Carbon Dioxide 21 (20-32) mmol/L BUN 17 (5-24) mg/dL Creatinine 1.0 (0.5-1.5) mg/dL Glucose 126 H (60-115) mg/dL Calcium 9.2 (8.4-10.6) mg/dL Calcium panel 01/25/25 Range/Units 04:10 Calcium 9.2 (8.4-10.6) mg/dL Pituitary panel 01/25/25 Range/Units 04:10 Sodium 138 (135-149) mmol/L Potassium 3.7 (3.6-5.1) mmol/L Chloride 107 (96-114) mmol/L Carbon Dioxide 21 (20-32) mmol/L BUN 17 (5-24) mg/dL Creatinine 1.0 (0.5-1.5) mg/dL Glucose 126 H (60-115) mg/dL Calcium 9.2 (8.4-10.6) mg/dL Adrenal panel 01/25/25 Range/Units 04:10 Sodium 138 (135-149) mmol/L Potassium 3.7 (3.6-5.1) mmol/L Chloride 107 (96-114) mmol/L Carbon Dioxide 21 (20-32) mmol/L BUN 17 (5-24) mg/dL Creatinine 1.0 (0.5-1.5) mg/dL Glucose 126 H (60-115) mg/dL Calcium 9.2 (8.4-10.6) mg/dL All other labs normal. Progress Note:A&P Assessment and plan (1) Cholelithiasis: Status: Acute (2) Acute calculous cholecystitis: Status: Acute Assessment and Plan: 44-year-old male presented to emergency room with abdominal pain that is most likely due to acute cholecystitis. I discussed with the patient his laboratory and imaging findings. Patient's WBC is elevated and his ultrasound shows thickened gallbladder wall. Although patient's Wagner's sign is negative, it was mentioned that he had positive Wagner sign during his ultrasound and his initial exam by the emergency room doctor. Patient had previous episodes that were similar to this one. I discussed with the patient that the etiology of his pain is most likely due to acute cholecystitis and possible biliary colic but gastritis can also play a role given the fact that patient takes ibuprofen and frequently drinks alcohol. I recommended to proceed with laparoscopic cholecystectomy. The procedure was discussed in detail. The risks associated procedure including infection, bleeding, injury to intra-abdominal organs, and injury to the common bile duct were all discussed with the patient, he agreed to proceed. Postoperatively, I recommended patient to see his primary care doctor to follow-up on his lung nodule. I also recommended to take omeprazole or other proton pump inhibitor for 3-4 weeks.
[2025-01-25 09:30] LABS: Albumin* 4.4 g/dL (3.3-5.0)
[2025-01-25 09:33] LABS: Alanine Aminotransferase* 29 U/L (4-50); Alkaline Phosphatase* 77 U/L (40-150); Aspartate Amino Transferase* 30 U/L (12-35); Bilirubin Direct* 0.2 mg/dL (0.0-0.5); Bilirubin Total* 0.4 mg/dL (0.1-1.5); Total Protein* 6.9 g/dL (6.0-8.3)
--- NOTE | 2025-01-25 13:12 | P.ANES_ITS ---
Anesthesia Charges Start Date/Time Anesthesia Start Date: 01/25/25 Anesthesia Start Time: 13:32 Stop Date/Time Anesthesia Stop Date: 01/25/25 Anesthesia Stop Time: 14:31 Coding CPT Codes CPT Codes: ANESTH SURG UPPER ABDOMEN - 33943 ([id number]) P2 - PATIENT W/MILD SYST DISEASE, QK - HYDRAULICS TEACHER 2-4 CNCRNT ANES PROC, QX - BODY DESIGN CHECKER SVC W/ MD MED DIRECTION
--- NOTE | 2025-01-25 13:12 | W.ANESCHARGE ---
Anesthesia Charges Start Date/Time Anesthesia Start Date: 01/25/25 Anesthesia Start Time: 13:32 Stop Date/Time Anesthesia Stop Date: 01/25/25 Anesthesia Stop Time: 14:31 Coding CPT Codes CPT Codes: ANESTH SURG UPPER ABDOMEN - 12780 ([id number]) P2 - PATIENT W/MILD SYST DISEASE, QK - FARMER TREE FRUIT AND NUT CROPS 2-4 CNCRNT ANES PROC, QX - DEPUTY SHERIFF/INVESTIGATOR SVC W/ MD MED DIRECTION
[2025-01-25] MEDS: CEFAZOLIN 2 GM INJ IVP (13:30)
--- NOTE | 2025-01-25 13:31 | P.GSOP_ITS ---
Operative Note Date of procedure: 01/25/25 Pre-op diagnosis: 1. Biliary colic. 2. Possible acute cholecystitis. Post-op diagnosis: 1. Biliary colic. 2. Acute cholecystitis. Type of Procedure: 1. Laparoscopic cholecystectomy. Indications: 44-year-old male presented to emergency room with epigastric and right upper quadrant abdominal pain that started last night. Patient had previous episodes similar to this. Those episodes would usually start after eating dinner and pain occurred at night. Patient was previously seen at the outside hospital in the emergency room at least twice. The pain spontaneously resolved. This time patient had spaghetti for dinner and developed severe sharp epigastric and right upper quadrant pain. The pain was not going away and he decided to come to the emergency room. Upon his workup he was found to have positive Wagner sign. WBC was elevated at 14. A gallbladder ultrasound showed thickened gallbladder wall with cholelithiasis. The common bile duct was normal in size. His liver function tests were normal. His lipase was normal. An abdominal CT was also obtained that showed distended gallbladder with no other acute findings to explain his pain. On my clinical exam patient had tenderness to palpation in the right quadrant but negative Wagner sign. Given patient's clinical history and his physical exam, biliary colic and possible acute cholecystitis was suspected, and laparoscopic cholecystectomy was recommended. The procedure was discussed in detail. The risks associated procedure including infection, bleeding, injury to the common bile duct, and injury to intra-abdominal organs were all discussed with the patient, and he agreed to proceed. Procedure Description: After discussing the risks and benefits of the procedure, the patient signed informed consent.? The operative site was marked and the patient was brought to the operating room and placed on the operating table in supine position.? Care was taken to pad the patient's pressure points.?? The patient was then intubated by anesthesia.?? The operative site was then prepped and draped in the usual sterile fashion.? A time-out was then performed. A 5-mm laparoscopy port was placed in the left upper quadrant guided by a 5-mm laparoscope placed into a translucent trochar.~ Passage through the layers of the abdominal wall was visualized with the laparoscope.~ A pneumoperitoneum was established. A 0-degree 5-mm laparoscope was advanced into the abdomen. The abdomen was briefly surveyed, and no adhesions were noted. A 10-mm port were placed supraumbilically and two more 5 mm ports were placed on the right under direct visualization by laparoscope. The camera was then changed to 10 mm 30- degree scope and placed into the abdomen through the 10 mm port. The left upper quadrant port entrance was examined and no injury to intra-abdominal organs was identified. The gallbladder was identified, the fundus grasped and retracted cephalad. The gallbladder was skinny and long and not distended. Edema was noted in the gallbladder wall. The infundibulum was grasped and retracted laterally, exposing the peritoneum overlying the triangle of Calot. This was then divided and exposed in a blunt fashion and with hook cautery. Common bile duct was not identified but care was taken not to injure it. The cystic duct was clearly identified and bluntly dissected circumferentially. Cystic artery was identified and tissues around it were dissected off. The cystic artery was located medial to the cystic duct. This obscured visualization of tissues posterior medial to the cystic duct. The cystic artery was then clipped with two 5 mm clips on the patient's side and single clipped on the specimen side and divided with scissors. The triangle of Calot was then further dissected with cautery. The cystic duct was then doubly ligated with surgical clips on the patient's side and singly clipped on the gallbladder side and divided. The gallbladder was dissected from the liver bed in retrograde fashion using hookcautery. Edema was seen in the gallbladder wall. The gallbladder was placed into an Endo-Catch bag and removed through the infraumbilical incision. Surgical site was examined for bleeding. No bleeding was seen in the surgical field. The fascia of the supraumbilical incision was then closed with 0-0 vicryl using Edward Annabelle needle under direct visualization. Pneumoperitoneum was completely reduced after viewing removal of the trocars under direct vision. The skin was then closed with 4-0 monocryl and steristrips were applied. Instrument, sponge, and needle counts were correct at closure and at the conclusion of the case. The patient was transferred to PACU in stable condition. Findings: Acute cholecystitis. Anesthesia: GETA Surgeon: Warren Bee MD Estimated blood loss (mL): 5 Specimen: Gallbladder Condition: stable Disposition: PACU
--- NOTE | 2025-01-25 14:40 | P.ANES_ITS ---
Anesthesia Charges Start Date/Time Anesthesia Start Date: 01/25/25 Anesthesia Start Time: 13:32 Stop Date/Time Anesthesia Stop Date: 01/25/25 Anesthesia Stop Time: 14:31 Coding CPT Codes CPT Codes: ANESTH SURG UPPER ABDOMEN - 06479 ([id number]) P2 - PATIENT W/MILD SYST DISEASE, QK - CUSTOMER RELATIONS SPECIALIST 2-4 CNCRNT ANES PROC, QX - STOCK PREPARATION OPERATOR SVC W/ MD MED DIRECTION
--- NOTE | 2025-01-25 14:40 | W.ANESCHARGE ---
Anesthesia Charges Start Date/Time Anesthesia Start Date: 01/25/25 Anesthesia Start Time: 13:32 Stop Date/Time Anesthesia Stop Date: 01/25/25 Anesthesia Stop Time: 14:31 Coding CPT Codes CPT Codes: ANESTH SURG UPPER ABDOMEN - 61900 ([id number]) P2 - PATIENT W/MILD SYST DISEASE, QK - OIL PIPELINE OPERATOR 2-4 CNCRNT ANES PROC, QX - APPLICATION INTERNSHIP SVC W/ MD MED DIRECTION
[2025-01-25] MEDS: HYDROCODONE-ACETAMIN 5-325 MG 1 TAB PO (15:26)
== END 2025-01-25 16:04 | disposition home or self-care (01) ==
LOC: ED 08:20 → OR 10:40
PROVIDERS: Family Medicine; Emergency Provider Family Medicine; Visit Provider Surgery
PROC: 0FT44ZZ Resection of Gallbladder, Percutaneous Endoscopic Approach (ICD-10-PCS; CPT 47562; principal; 2025-01-25 14:00)
DX: K80.12 Calculus of gallbladder with acute and chronic cholecystitis without obstruction (principal); R91.1 Solitary pulmonary nodule; R10.11 Right upper quadrant pain; F17.210 Nicotine dependence, cigarettes, uncomplicated
CPT/HCPCS: 47562; 00790; 36415; 74177; 76705; 80048; 80076; 81001; 82077; 82150; 83690; 84145; 84484; 85025; 86140; 88304; 94761; 99284; 99285; A9270; J0330; J0690; J1100; J1885; J2250; J2405; J2704; J3010; J3490; J7030; Q9967